=== PATIENT | male | born 1995 | race Caucasian/White ===

== ENCOUNTER 2019-04-28 14:17 | Emergency (ER) | payer BC, OTHER ==
[~2019-04-28] VITALS: Ht 165.1 cm; Wt 51.0 kg
[2019-04-28] MEDS ORDERED: FAMO-119 PO (14:38)
--- NOTE | 2019-04-28 14:38 | ED GI ---
General Chief Complaint: Abdominal/GI Problems Stated Complaint: EPIGASTRIC PAIN Source of Information: Patient Exam Limitations: No Limitations History of Present Illness Date Seen by Provider: Apr 28, 2019 Time Seen by Provider: 14:30 Initial Comments Patient presents with upper abdominal sharp pain intermittent for the past few days. Seen in urgent care clinic today, they did the "H. pylori test" and told him it was negative and he should go to the ER. Denies fever or chills, denies weight loss, denies nausea vomiting or diarrhea. Denies smoking or alcohol consumption. Denies excessive energy drinks or soft drinks. Does admit to drinking sweet tea rather copiously and daily. Does not take any anti-infla mmatories or aspirin other than rarely for headache. Denies any change in stool pattern her habit. Denies dark or tarry stools or blood in the stool. Allergies and Home Medications Allergies Coded Allergies: No Known Drug Allergies (Unverified , 04/28/19) Home Medications Famotidine 20 Mg Tablet, 20 MG PO BID Prescribed by: MIREILLE LATHAM on 04/28/19 0968 Patient Home Medication List Home Medication List Reviewed: Yes Review of Systems Review of Systems Constitutional: see HPI Gastrointestinal: Denies No Symptoms Reported; See HPI; Denies Abdomen Distended; Abdominal Pain; Denies Blood Streaked Stools, Denies Constipated, Denies Diarrhea, Denies Difficulty Swallowing, Denies Nausea, Denies Poor Appetite, Denies Poor Fluid Intake, Denies Rectal Bleeding, Denies Vomiting, Denies Other Genitourinary: See HPI Musculoskeletal: no symptoms reported Past Cszsydz-Zfsqgd-Crurbu Hx Past Med/Social Hx: Reviewed Nursing Past Med/Soc Hx Patient Social History Recent Foreign Travel: No Contact w/Someone Who Travel: No Physical Exam Vital Signs Vital Signs - First Documented 04/28/19 14:30 Temp 36.8 Pulse 68 Resp 18 B/P (MAP) 114/58 (76) Pulse Ox 99 O2 Delivery Room Air Capillary Refill : Height/Weight/BMI Height: '" Weight: lbs. oz. kg; BMI Method: General Appearance: WD/WN, no apparent distress Respiratory: chest non-tender, lungs clear, normal breath sounds, no respiratory distress, no accessory muscle use Cardiovascular: normal peripheral pulses, regular rate, rhythm, no edema, no gallop, no JVD, no murmur Gastrointestinal: soft, tenderness (mild epigastric) Extremities: normal range of motion, non-tender, no pedal edema Progress/Results/Core Measures Results/Orders My Orders Orders - MIREILLE LATHAM DO Famotidine Tablet (Pepcid Tablet) (04/28/19 14:45) Medications Given in ED Current Medications Medications Dose Ordered Sig/[place] Route Start Time Stop Time Status Last Admin Dose Admin Famotidine 20 mg ONCE ONCE PO 04/28/19 14:45 04/28/19 14:46 DC 04/28/19 14:53 20 MG Vital Signs/I&O 04/28/19 04/28/19 14:30 14:55 Temp 36.8 36.8 Pulse 68 68 Resp 18 18 B/P (MAP) 114/58 (76) 114/58 (76) Pulse Ox 99 99 O2 Delivery Room Air Departure Impression Primary Impression: Epigastric abdominal pain Disposition: HOME, SELF-CARE Condition: Improved Departure-Patient Inst. Referrals: CHANI VANG MD (PCP/Family) Primary Care Physician Patient Instructions: Stomach Ache and Stomach Upset Scripts Famotidine (Pepcid) 20 Mg Tablet 20 MG PO BID, #30 TAB Prov: MIREILLE LATHAM DO 04/28/19 MIREILLE LATHAM DO Apr 28, 2019 14:38
[2019-04-28] MEDS ORDERED: FAMOTIDINE 20 MG (PEPCID) TABLET PO ONE (14:45)
[2019-04-28 14:55] VITALS: BP 114/58
--- OUTSIDE RECORDS SUMMARY | 2019-05-02 14:47 | XMS REPORT | Continuity of Care Document ---
Author Organization Unknown Address Unknown Phone Unavailable Allergies Active Description Code Type Severity Reaction Onset Reported/Identified Relationship to Patient Clinical Status Yes No Known Drug Allergies [id number] Drug Allergy Unknown N/A 04/28/2019 Medications There is no data. Problems There is no data. Procedures There is no data. Results Test Result Range LIPID PANEL - 09/22/18 08:40 CHOLESTEROL, TOTAL 146 mg/dL <200 HDL CHOLESTEROL 40 mg/dL >40 TRIGLYCERIDES 128 mg/dL <150 LDL-CHOLESTEROL 84 mg/dL (calc) NRG CHOL/HDLC RATIO 3.7 (calc) <5.0 NON HDL CHOLESTEROL 106 mg/dL (calc) <13 0 GLUCOSE, SERUM - 09/22/18 08:40 GLUCOSE 81 mg/dL 65-99 Encounters ACCT No. Visit Date/Time Discharge Status Pt. Type Provider Facility Loc./Unit Complaint [id number] 10/06/2018 09:00:00 10/06/2018 23:59: 59 CLS Outpatient [facility] [id number] 09/22/2018 08:30:00 Document Registration [id number] 04/28/2019 14:19:00 020 14:55:00 DIS Emergency MIREILLE LATHAM DO [facility] ER FS EPIGASTRIC PAIN
== END 2019-04-28 14:55 | disposition home or self-care (01) ==
LOC: ER FS 14:19
DX: R10.13 Epigastric pain (principal)
CPT/HCPCS: 99283

== ENCOUNTER → 2020-08-15 | Outpatient (CLI) | payer SELFPAY ==
[~2020-08-15] MED LIST: FAMO-119 PO
--- NOTE | 2020-08-15 14:51 | Diagnostic Imaging Report ---
INDICATION: Low back pain 3 views of the lumbosacral spine show normal height and alignment of the vertebral bodies. Disc spaces are well maintained. There is no spondylosis. There is no fracture. IMPRESSION: Normal lumbosacral spine. Dictated by: Dictated on workstation # [id number]
--- NOTE | 2020-08-15 14:51 | Diagnostic Imaging Report ---
INDICATION: Low back pain. Dorsalgia. 2 views of the thoracic spine show normal height and alignment of the vertebral bodies. Disc spaces are well maintained. There is no spondylosis. There is no fracture. IMPRESSION: Normal thoracic spine. Dictated by: Dictated on workstation # [id number]
--- NOTE | 2020-08-15 17:10 | Diagnostic Imaging Report ---
CLINICAL HISTORY: Neck pain. No known injury. COMPARISON: None. TECHNIQUE: 3 views of the cervical spine. FINDINGS: There is no acute fracture or dislocation of the cervical spine. Alignment is anatomic. Vertebral body heights and disc spaces are well-maintained. No focal osseous lesions are seen. The soft tissues of the neck are unremarkable. The included lung apices are clear. IMPRESSION: 1. No acute fracture or dislocation in the cervical spine. Dictated by: Dictated on workstation # [id number]
== END ==
LOC: RAD FS 12:15
PROVIDERS: ATTEND Nurse Practitioner Family
DX: M54.5 Low back pain (principal); M54.2 Cervicalgia
CPT/HCPCS: 72040; 72070; 72100

== ENCOUNTER → 2021-08-15 | Outpatient (CLI) | payer BC ==
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
== END ==
LOC: RAD 09:49
PROVIDERS: ATTEND Registered Nurse
DX: M54.9 Dorsalgia, unspecified (principal); G89.29 Other chronic pain
CPT/HCPCS: 72148